=== PATIENT | female | born 1975 | race Caucasian/White ===

== ENCOUNTER 2016-04-29 07:22 | Inpatient (IN) | payer MEDICAID ==
[~2016-04-29] VITALS: Ht 165.1 cm; Wt 102.4 kg
[2016-04-29] MEDS ORDERED: PROPOFOL 50ML VIAL IV ONE (07:46)
[2016-04-29] MEDS ORDERED: ASPIRIN 81 MG CHEW TAB ONE (09:42)
[2016-04-29] MEDS ORDERED: SALINE FLUSH 10 ML FLUSH PRN (10:00)
[2016-04-29] MEDS ORDERED: BISACODYL 10 MG SUPP RECTAL PRN (10:00)
[2016-04-29] MEDS ORDERED: KCL CR 10 MEQ CAP PO ONE (10:00)
[2016-04-29] MEDS ORDERED: ZOLPIDEM 5 MG TAB PO PRN (10:00)
[2016-04-29] MEDS ORDERED: ACETAMINOPHEN 325 MG TAB PO PRN (10:00)
[2016-04-29 12:57] VITALS: Ht 165.1 cm; Wt 102.4 kg
[2016-04-29 13:11] VITALS: BP_SYST 143; RESP 18; TEMP 97.7
[2016-04-29] MEDS: CLOPIDOGREL 75 MG TAB PO SCH (13:41)
[2016-04-29] MEDS: FAMOTIDINE 20 MG TAB PO SCH ×2 (13:41→21:15)
[2016-04-29] MEDS: NICOTINE 21 MG/24 HR TRANSDERM SCH (13:48)
[2016-04-29] MEDS: POLYETHYLENE GLYCOL 17 GM PACKET PO SCH (13:48)
[2016-04-29 14:46] VITALS: RESP 20
[2016-04-29] MEDS ORDERED: NITROGLYCERIN SL 0.4 MG TAB SL PRN (16:45)
[2016-04-29] MEDS ORDERED: DUONEB INH PRN (16:45)
[2016-04-29] MEDS ORDERED: METOPROLOL XL 50 MG TAB PO SCH (17:04)
[2016-04-29 17:49] VITALS: BP_SYST 143; RESP 18; TEMP 97.9
[2016-04-29] MEDS: PANTOPRAZOLE 40 MG TAB PO SCH (18:10)
[2016-04-29] MEDS: METHOCARBAMOL 500 MG TAB PO SCH ×2 (18:10→21:15)
[2016-04-29] MEDS: ISOSORBIDE MONO 30 MG TAB PO SCH (18:11)
[2016-04-29] MEDS: FENOFIBRATE 48 MG TAB PO SCH (18:11)
[2016-04-29] MEDS: LISINOPRIL 2.5 MG TAB PO SCH (18:11)
[2016-04-29] MEDS: amLODIPine 5 MG TAB PO SCH (18:12)
[2016-04-29] MEDS: VENLAFAXINE XR 75 MG CAP PO SCH (18:13)
[2016-04-29] MEDS: GABAPENTIN 600 MG TAB PO SCH ×2 (18:13→21:15)
[2016-04-29] MEDS: METOPROLOL XL 100 MG TAB PO SCH (18:18)
[2016-04-29 19:30] VITALS: BP_SYST 141; RESP 18; TEMP 98.5
[2016-04-29] MEDS ORDERED: Atorvastatin 40 MG TAB PO SCH (21:00)
[2016-04-29] MEDS ORDERED: Atorvastatin 20 MG TAB PO SCH (21:00)
[2016-04-29] MEDS: RANOLAZINE ER 500 MG TAB PO SCH (21:15)
[2016-04-29] MEDS: TOPIRAMATE 100 MG TAB PO SCH (21:15)
[2016-04-29] MEDS: SALINE FLUSH 10 ML FLUSH SCH (21:15)
[2016-04-29] MEDS: MELOXICAM 7.5 MG TAB PO SCH (21:15)
[2016-04-29 21:30] VITALS: BP_SYST 150; RESP 18
[2016-04-29 23:55] VITALS: BP_SYST 132; RESP 18; TEMP 97.7
[2016-04-30 03:30] VITALS: BP_SYST 132; RESP 20; TEMP 98.1
[2016-04-30] MEDS: SODIUM CHLORIDE 0.9% FLUSH BAG 500 ML IV SCH (04:18)
[2016-04-30] MEDS: PANTOPRAZOLE 40 MG TAB PO SCH ×2 (06:39→16:22)
[2016-04-30 07:41] VITALS: BP_SYST 125; RESP 20; TEMP 98.5
[2016-04-30] MEDS: METHOCARBAMOL 500 MG TAB PO SCH ×3 (08:25→20:51)
[2016-04-30] MEDS: CLOPIDOGREL 75 MG TAB PO SCH (08:25)
[2016-04-30] MEDS: SALINE FLUSH 10 ML FLUSH SCH ×2 (08:25→20:51)
[2016-04-30] MEDS: MELOXICAM 7.5 MG TAB PO SCH (08:26)
[2016-04-30] MEDS: LISINOPRIL 2.5 MG TAB PO SCH (08:26)
[2016-04-30] MEDS: FAMOTIDINE 20 MG TAB PO SCH (08:26)
[2016-04-30] MEDS: FENOFIBRATE 48 MG TAB PO SCH (08:26)
[2016-04-30] MEDS: RANOLAZINE ER 500 MG TAB PO SCH ×2 (08:26→20:52)
[2016-04-30] MEDS: ISOSORBIDE MONO 30 MG TAB PO SCH (08:26)
[2016-04-30] MEDS: VENLAFAXINE XR 75 MG CAP PO SCH (08:26)
[2016-04-30] MEDS: NICOTINE 21 MG/24 HR TRANSDERM SCH ×2 (08:27→12:27)
[2016-04-30] MEDS: METOPROLOL XL 100 MG TAB PO SCH (08:27)
[2016-04-30] MEDS: GABAPENTIN 600 MG TAB PO SCH ×3 (08:27→20:51)
[2016-04-30] MEDS: amLODIPine 5 MG TAB PO SCH (08:27)
[2016-04-30] MEDS: POLYETHYLENE GLYCOL 17 GM PACKET PO SCH (08:32)
[2016-04-30 11:50] VITALS: BP_SYST 113; RESP 20; TEMP 97.5
[2016-04-30] MEDS: OMNIPAQUE 240 MG/ML, 50 ML PO SCH ×2 (14:26→16:40)
[2016-04-30 15:46] VITALS: BP_SYST 113; RESP 20; TEMP 98.1
[2016-04-30] MEDS ORDERED: OPTIRAY 350 100 ML VIAL HMH IV ONE (19:39)
[2016-04-30 19:40] VITALS: BP_SYST 132; RESP 18; TEMP 98.6
[2016-04-30] MEDS: Atorvastatin 40 MG TAB PO SCH (20:52)
[2016-04-30] MEDS: TOPIRAMATE 100 MG TAB PO SCH (20:52)
[2016-04-30 23:15] VITALS: BP_SYST 143; RESP 18; TEMP 98.1
[2016-05-01 03:09] VITALS: BP_SYST 117; RESP 16; TEMP 97.6
[2016-05-01] MEDS: SODIUM CHLORIDE 0.9% FLUSH BAG 500 ML IV SCH (06:00)
[2016-05-01 07:37] VITALS: BP_SYST 148; RESP 16; TEMP 97.8
[2016-05-01] MEDS ORDERED: MISSING DOSE XX ONE ×2 (09:15→09:55)
[2016-05-01] MEDS: FENOFIBRATE 48 MG TAB PO SCH (09:18)
[2016-05-01] MEDS: CLOPIDOGREL 75 MG TAB PO SCH (09:18)
[2016-05-01] MEDS: VENLAFAXINE XR 75 MG CAP PO SCH (09:18)
[2016-05-01] MEDS: amLODIPine 5 MG TAB PO SCH (09:18)
[2016-05-01] MEDS: GABAPENTIN 600 MG TAB PO SCH ×3 (09:18→21:56)
[2016-05-01] MEDS: LISINOPRIL 2.5 MG TAB PO SCH (09:18)
[2016-05-01] MEDS: PANTOPRAZOLE 40 MG TAB PO SCH ×2 (09:18→16:39)
[2016-05-01] MEDS: METHOCARBAMOL 500 MG TAB PO SCH ×3 (09:18→21:56)
[2016-05-01] MEDS: RANOLAZINE ER 500 MG TAB PO SCH ×2 (09:18→21:56)
[2016-05-01] MEDS: ISOSORBIDE MONO 30 MG TAB PO SCH (09:18)
[2016-05-01] MEDS: POLYETHYLENE GLYCOL 17 GM PACKET PO SCH (09:19)
[2016-05-01] MEDS: SALINE FLUSH 10 ML FLUSH SCH ×2 (09:19→21:56)
[2016-05-01] MEDS: METOPROLOL XL 100 MG TAB PO SCH (09:49)
[2016-05-01] MEDS: NICOTINE 21 MG/24 HR TRANSDERM SCH (09:49)
[2016-05-01 11:18] VITALS: BP_SYST 123; RESP 16; TEMP 97.3
[2016-05-01 16:12] VITALS: BP_SYST 124; RESP 16; TEMP 98
[2016-05-01] MEDS ORDERED: POLYETHYLENE GLYCOL 17 GM PACKET PO SCH (18:00)
[2016-05-01] MEDS: [UNRECOGNIZED DRUG - REMARK] XX SCH ×2 (18:43→20:00)
[2016-05-01] MEDS ORDERED: **NOTE TO NURSE XX ONE (20:20)
[2016-05-01 20:40] VITALS: BP_SYST 143; RESP 16; TEMP 98.5
[2016-05-01] MEDS ORDERED: POLYETHYLENE GLYCOL 17 GM PACKET PO ONE (21:00)
[2016-05-01] MEDS ORDERED: BISACODYL EC 5 MG TAB PO ONE (21:00)
[2016-05-01] MEDS: Atorvastatin 40 MG TAB PO SCH (21:56)
[2016-05-01] MEDS: TOPIRAMATE 100 MG TAB PO SCH (21:56)
[2016-05-01 23:44] VITALS: BP_SYST 122; RESP 16; TEMP 97.8
[2016-05-02] VITALS (10 sets, daily range): BP systolic 107–137; RESP 15–20; TEMP 96.9–98.6
[2016-05-02] MEDS: SODIUM CHLORIDE 0.9% FLUSH BAG 500 ML IV SCH (05:29)
[2016-05-02] MEDS: PANTOPRAZOLE 40 MG TAB PO SCH ×2 (06:42→16:00)
[2016-05-02] MEDS: POLYETHYLENE GLYCOL 17 GM PACKET PO SCH (08:02)
[2016-05-02] MEDS ORDERED: ALPRAZOLAM 0.25 MG TAB PO ONE (08:05)
[2016-05-02] MEDS ORDERED: ALPRAZOLAM 0.25 MG TAB ONE (08:09)
[2016-05-02] MEDS: FENOFIBRATE 48 MG TAB PO SCH (08:11)
[2016-05-02] MEDS: amLODIPine 5 MG TAB PO SCH (08:11)
[2016-05-02] MEDS: SALINE FLUSH 10 ML FLUSH SCH (08:11)
[2016-05-02] MEDS: LISINOPRIL 2.5 MG TAB PO SCH (08:12)
[2016-05-02] MEDS: METHOCARBAMOL 500 MG TAB PO SCH ×2 (08:12→16:00)
[2016-05-02] MEDS: METOPROLOL XL 100 MG TAB PO SCH (08:12)
[2016-05-02] MEDS: GABAPENTIN 600 MG TAB PO SCH ×2 (08:12→16:00)
[2016-05-02] MEDS: VENLAFAXINE XR 75 MG CAP PO SCH (08:12)
[2016-05-02] MEDS: ISOSORBIDE MONO 30 MG TAB PO SCH (08:12)
[2016-05-02] MEDS: RANOLAZINE ER 500 MG TAB PO SCH (08:12)
[2016-05-02] MEDS: CLOPIDOGREL 75 MG TAB PO SCH (08:12)
[2016-05-02] MEDS: NICOTINE 21 MG/24 HR TRANSDERM SCH (08:13)
== END 2016-05-02 17:42 | disposition home or self-care (01) | DRG 69 ==
LOC: ENRESERVTM → ENRESERVDT → ER 07:22 → EMR 09:59 → ENPENDDIS 09:59 → PCU 12:10
PROVIDERS: ADMIT Internal Medicine; ATTEND Internal Medicine
PROC: 0DJD8ZZ Inspection of Lower Intestinal Tract, Via Natural or Artificial Opening Endoscopic (ICD-10-PCS; principal; 2016-05-02 11:20)
DX: G45.9 Transient cerebral ischemic attack, unspecified (principal); K62.5 Hemorrhage of anus and rectum; K64.8 Other hemorrhoids; Z86.711 Personal history of pulmonary embolism; Z79.01 Long term (current) use of anticoagulants; F41.9 Anxiety disorder, unspecified; E66.9 Obesity, unspecified; Z68.37 Body mass index [BMI] 37.0-37.9, adult; E78.5 Hyperlipidemia, unspecified; G89.4 Chronic pain syndrome; I25.10 Atherosclerotic heart disease of native coronary artery without angina pectoris; Z85.038 Personal history of other malignant neoplasm of large intestine
CPT/HCPCS: 36415; 70450; 70551; 71010; 74177; 80048; 80053; 80061; 81001; 82378; 82553; 82947; 84484; 85014; 85018; 85025; 85610; 87088; 93005; 93306; 93880; 94799; 99233